=== PATIENT | female | born 1955 | race Caucasian/White ===

== ENCOUNTER 2021-08-01 18:24 | Emergency (ER) | payer OTHER, SELFPAY ==
[2021-08-01 18:36] VITALS: BP 148/100; PULSE 93; RESP 16; TEMP 37.2; O2SAT 95
--- NOTE | 2021-08-01 18:51 | ED.EAR ---
HPI - Ear Problem General Chief complaint: Ear Stated complaint: Ear Pain Time Seen by Provider: 08/01/21 18:51 Source: patient Mode of arrival: ambulatory Limitations: no limitations History of Present Illness HPI Narrative: 66-year-old female presents with complaint of intermittent itching to left ear for several weeks. Reports that she got Debrox drops from the pharmacy today because she is concerned that wax impaction is causing itching.. Please drops to both ears. After placing drops to the left ear she began to have throbbing to her ear. Driving has now resolved but wanted to have ear check. Afebrile. No changes to hearing. All systems reviewed and negative except as noted above. Related Data Home Medications Medication Instructions Recorded Confirmed albuterol sulfate [ProAir HFA] 2 puff INHALATION DIRECTED 03/02/19 08/01/21 alendronate 70 mg PO DIRECTED 03/02/19 08/01/21 budesonide-formoterol [Symbicort] 1 inh INHALATION DIRECTED 03/02/19 08/01/21 hydrochlorothiazide 25 mg PO DAILY 03/02/19 08/01/21 meclizine 12.5 mg PO DAILY 03/02/19 08/01/21 omeprazole 20 mg PO DAILY 03/02/19 08/01/21 [id number] 2 inh INHALATION DIRECTED 08/01/21 08/01/21 [Breztri Aerosphere] Allergies Allergy/AdvReac Type Severity Reaction Status Date / Time amoxicillin Allergy Mild Rash Verified 08/01/21 18:26 codeine Allergy Mild Nausea Verified 08/01/21 18:26 montelukast Allergy Mild Rash Verified 08/01/21 18:26 econazole Allergy Rash Verified 08/01/21 18:26 POTASSIUM CLAVULANATE Allergy Mild Rash Uncoded 08/01/21 18:26 Review of Systems Review of Systems: CONSTITUTIONAL: Denies fever, chills, or sweats. EYES: Denies visual changes, redness, or discharge. ENT: Denies rhinorrhea, congestion, sore throat. Reports itching to left ear canal. CARDIOVASCULAR: Denies chest pain, palpitations, or edema. RESPIRATORY: Denies cough or dyspnea. GASTROINTESTINAL: Denies abdominal pain, nausea, vomiting, or diarrhea. GENITOURINARY: Denies dysuria or hematuria. SKIN: Denies rash or itching. MUSCULOSKELETAL: Denies back pain, joint pain, or myalgia. NEUROLOGIC: Denies headache, numbness, or weakness. PSYCHIATRIC: Denies anxiety or depression. All other systems reviewed are negative, except as documented in HPI. FORMERLY [facility] Past Medical History Medical History (Updated 08/01/21 @ 19:01 by Mei Silva NP) Anxiety and depression Asthma Benign paroxysmal positional vertigo COPD (chronic obstructive pulmonary disease) Fatty liver GERD (gastroesophageal reflux disease) Hypertension Surgical History Surgical History (Updated 03/06/19 @ 10:33 by Naye Taveras NP) H/O: hysterectomy History of cholecystectomy S/P lumpectomy, left breast Social History Social History (Updated 03/06/19 @ 10:36 by Naye Taveras NP) Smoking status: Never smoker Comments At time of signature, agree with nursing past medical, surgical, social and family history. There is no relevant family history pertinent to the presenting complaint. Exam Narrative: GENERAL: This is a well-nourished, well-developed patient, in no apparent distress. HEAD: normocephalic, atraumatic. EYES: PERRL. Sclera clear/white. Vision is grossly intact. EARS: External ears normal. No wax impacted to ear canals. Mild fluid to bilateral TMs but no erythema. No retraction or bulging. No concern for eczema to canals, there is no dry skin. NOSE: External nose normal NECK: Neck supple, non-tender without lymphadenopathy, masses or thyromegaly. CARDIOVASCULAR: Regular rate and rhythm without murmurs, gallops, or rubs. RESPIRATORY: Clear to auscultation. Breath sounds equal bilaterally. No wheezes, rales, or rhonchi. SKIN: warm, Dry, intact with no suspicious lesions or rash, good texture and turgor. NEURO: awake, alert, and oriented to person, place and time. There were no obvious focal neurologic abnormalities. EXTREMITIES: Normal range of
== END 2021-08-01 19:02 | disposition home or self-care (01) ==
PROVIDERS: Emergency Provider Nurse Practitioner Family; PCP Internal Medicine
DX: L29.9 Pruritus, unspecified (principal); J30.2 Other seasonal allergic rhinitis; J44.9 Chronic obstructive pulmonary disease, unspecified; I10 Essential (primary) hypertension; K21.9 Gastro-esophageal reflux disease without esophagitis; K76.0 Fatty (change of) liver, not elsewhere classified; H81.10 Benign paroxysmal vertigo, unspecified ear
CPT/HCPCS: 99211; G0463